=== PATIENT | female | born 1990 ===

== ENCOUNTER 2021-12-29 13:25 | Emergency (ER) | payer BC ==
[2021-12-29] MEDS ORDERED: Proparacaine 0.5% Ophth Soln 15 ML Bottle EYELF STA (13:44)
[2021-12-29] MEDS ORDERED: Tetracaine HCl/PF 0.5% 4 ML Bottle EYELF ONE (14:04)
[2021-12-29] MEDS ORDERED: Diphtheria,Pertussis(Acell),Tetanus Vaccine 0.5 ML Syringe IM ONE (14:28)
== END 2021-12-29 14:37 | disposition home or self-care (01) ==
LOC: MW.ED 13:25
DX: S05.02XA Injury of conjunctiva and corneal abrasion without foreign body, left eye, initial encounter (principal); J45.909 Unspecified asthma, uncomplicated; Z23 Encounter for immunization; Z87.891 Personal history of nicotine dependence; Z88.8 Allergy status to other drugs, medicaments and biological substances; Z88.0 Allergy status to penicillin; Z91.040 Latex allergy status; W20.8XXA Other cause of strike by thrown, projected or falling object, initial encounter
CPT/HCPCS: 90471; 90715; 99283